=== PATIENT | female | born 1975 | race Caucasian/White ===

== ENCOUNTER 2023-02-17 08:30 | Outpatient (CLI) | payer OTHER, SELFPAY ==
[2023-02-17 09:24] LABS: Basophils Absolute Auto 0.1 K/mm3 (0.0-0.1); Basophils Percent Auto 1.2 % (0.2-1.2); Eosinophils Absolute Auto 0.4 K/mm3 (0-0.3); Eosinophils Percent Auto 3.9 % (0-4.4); Hematocrit 37.7 % (37.0-47.0); Hemoglobin 11.8 g/dL (12.0-15.0); Immature Granulocyte Absolute 0.04 K/mm3 (0.00-0.031); Immature Granulocyte Percent A 0.4 % (0-0.5); Lymphocytes Absolute Auto 1.82 K/mm3 (0.9-3.2); Lymphocytes Percent Auto 19.4 % (18.3-44.2); Mean Corpuscular HGB Conc 31.3 g/dl (32-36); Mean Corpuscular Hemoglobin 26.9 pg (26-34); Mean Corpuscular Volume 85.9 fl (80-100); Mean Platelet Volume 10.9 fl (7.4-10.4); Monocytes Absolute Auto 0.7 K/mm3 (0.1-0.6); Monocytes Percent Auto 7.6 % (2.6-8.5); Neutrophils Absolute Auto 6.3 K/mm3 (1.3-6.7); Neutrophils Percent Auto 67.5 % (45.5-73.1); Platelet Count Result 265 k/mm3 (150-375); Red Blood Count 4.39 M/mm3 (4.2-5.4); Red Cell Distribution Width 14.6 % (11.5-14.5); White Blood Count 9.4 K/mm3 (4.5-10.0)
[2023-02-17 09:32] LABS: Alanine Aminotransferase 31 U/L (6-35); Albumin Level 4.4 g/dL (3.5-5.1); Alkaline Phosphatase 67 U/L (38-126); Anion Gap 9 mmol/L (8-16); Aspartate Amino Transferase 32 U/L (14-36); Bilirubin,Total 0.5 mg/dL (0.2-1.3); Blood Urea Nitrogen 9 mg/dL (7-17); Calcium 8.7 mg/dL (8.4-10.2); Carbon Dioxide 27 mmol/L (22-30); Chloride 102 mmol/L (98-107); Cholesterol 160 mg/dL (0-200); Estimated Glomerular Filt Rate > 60; Glucose 102 mg/dL (65-110); HDL Direct 72 mg/dL; Potassium 3.5 mmol/L (3.4-5.0); Sodium 138 mmol/L (137-145); Triglycerides 104 mg/dL (<150)
[2023-02-17 09:43] LABS: LDL Cholesterol Direct 45 mg/dL
== END 2023-02-17 08:31 | disposition home or self-care (01) ==
PROVIDERS: PCP Family Medicine; Visit Provider Physician Assistant Medical
DX: I10 Essential (primary) hypertension (principal); Z00.00 Encounter for general adult medical examination without abnormal findings
CPT/HCPCS: 36415; 80053; 80061; 85025

== ENCOUNTER 2024-06-18 11:02 | Outpatient (CLI) | payer OTHER, SELFPAY ==
[2024-06-18 11:32] LABS: Basophils Absolute Auto 0.1 K/mm3 (0.0-0.1); Basophils Percent Auto 0.9 % (0.2-1.2); Eosinophils Absolute Auto 0.5 K/mm3 (0-0.3); Eosinophils Percent Auto 4.3 % (0-4.4); Hematocrit 34.6 % (37.0-47.0); Hemoglobin 10.5 g/dL (12.0-15.0); Immature Granulocyte Absolute 0.07 K/mm3 (0.00-0.031); Immature Granulocyte Percent A 0.7 % (0-0.5); Lymphocytes Absolute Auto 2.36 K/mm3 (0.9-3.2); Lymphocytes Percent Auto 22.3 % (18.3-44.2); Mean Corpuscular HGB Conc 30.3 g/dl (32-36); Mean Corpuscular Hemoglobin 23.9 pg (26-34); Mean Corpuscular Volume 78.8 fl (80-100); Mean Platelet Volume 10.5 fl (7.4-10.4); Monocytes Absolute Auto 0.6 K/mm3 (0.1-0.6); Monocytes Percent Auto 5.6 % (2.6-8.5); Neutrophils Percent Auto 66.2 % (45.5-73.1); Platelet Count Result 305 k/mm3 (150-375); Red Blood Count 4.39 M/mm3 (4.2-5.4); White Blood Count 10.6 K/mm3 (4.5-10.0)
[2024-06-18 11:43] LABS: Alanine Aminotransferase 33 U/L (6-35); Albumin Level 4.6 g/dL (3.5-5.1); Alkaline Phosphatase 70 U/L (38-126); Anion Gap 9 mmol/L (4-12); Aspartate Amino Transferase 26 U/L (14-36); Bilirubin,Total 0.3 mg/dL (0.2-1.3); Blood Urea Nitrogen 17 mg/dL (7-17); Calcium 8.8 mg/dL (8.4-10.2); Carbon Dioxide 27 mmol/L (22-30); Chloride 102 mmol/L (98-107); Cholesterol 196 mg/dL (0-200); Estimated Glomerular Filt Rate > 60; Glucose 107 mg/dL (65-110); HDL Direct 66 mg/dL; Potassium 3.9 mmol/L (3.4-5.0); Sodium 138 mmol/L (137-145); Triglycerides 128 mg/dL (<150)
[2024-06-18 11:54] LABS: LDL Cholesterol Direct 53 mg/dL
--- OUTSIDE RECORDS SUMMARY | 2024-06-18 12:22 | XMS_ITS | Clinical Summary ---
Author Organization [facility] [place] [address] [facility] Address [address] [place] [address] Care Team Providers Care Heater Engineer Helper Name Role Phone Hemal Morales Primary Care Provider [phone] Allergies No known active allergies Medications loratadine 10 mg capsule Take 10 mg by mouth daily Active rizatriptan SUPERINTENDENT HORTICULTURE (MAXALT-SUPERINTENDENT HORTICULTURE) 10 mg disintegrating tabletIndications :Migraine without aura and without status migrainosus, not intractable May repeat in 2 hours if unresolved. Do not exceed 30 mg in 24 hours. 10 tablet 3 022 Active fexofenadine (SUPRIYA) 180 mg tablet Take 1 tablet (180 mg total) by mouth daily Active albuterol HFA (PROVENTIL HFA,VENTOLIN HFA,PROAIR HFA) 90 mcg/actuation inhaler INHALE 2 PUFFS BY MOUTH EVERY 6 HOURS NEEDED FOR WHEEZING OR SHORTNESS OF BREATH 8.5 g 1 024 Active semaglutide (Wegovy) 0.25 mg/0.5 mL auto-injectorIndi cations:Class 1 obesity due to excess calories with serious comorbidity and body mass index (BMI) of 32.0 to 32.9 in adult Inject 0.5 mL (0.25 mg total) under the skin every 7 days 2 mL 024 Active Additional Information Patient not taking.Reported on 03/06/2024 tirzepatide, weight loss, (Zepbound) 2.5 mg/0.5 mL pen injectorIndicatio ns:Class 1 obesity due to excess calories with serious comorbidity and body mass index (BMI) of 32.0 to 32.9 in adult Inject 0.5 mL (2.5 mg total) under the skin every 7 days 2 mL Active Additional Information Patient not taking.Reported on 03/06/2024 ondansetron ODT (ZOFRAN-ODT) 4 mg disintegrating tabletIndications :Nausea and vomiting, unspecified vomiting type Take 1 tablet (4 mg total) by mouth every 6 (six) hours as needed for nausea or vomiting 30 tablet Active Additional Information Patient not taking.Reported on 03/06/2024 hyoscyamine (LEVSIN) 0.125 mg SL tabletIndications :Urinary Incontinence Take 1 tablet (0.125 mg total) by mouth every 6 (six) hours as needed for cramping for up to 7 days 28 tablet Active Additional Information Patient not taking.Reported on 03/06/2024 amLODIPine (NORVASC) 5 mg tabletIndications :Essential (primary) hypertension Take 1 tablet (5 mg total) by mouth daily 90 tablet Active sertraline (ZOLOFT) 50 mg tabletIndications :Moderate episode of recurrent major depressive disorder (HCC) TAKE 1 TABLET(50 MG) BY MOUTH DAILY 90 tablet Active ALPRAZolam (XANAX) 0.5 mg tabletIndications :JOSLYN (generalized anxiety disorder) TAKE 1 TABLET(0.5 MG) BY MOUTH THREE TIMES DAILY NEEDED FOR ANXIETY 60 tablet Active sertraline (ZOLOFT) 50 mg tabletIndications :Moderate episode of recurrent major depressive disorder (HCC) Take 1 tablet (50 mg total) by mouth daily 90 tablet 2024 Discontinued ALPRAZolam (XANAX) 0.5 mg tabletIndications :JOSLYN (generalized anxiety disorder) TAKE 1 TABLET(0.5 MG) BY MOUTH THREE TIMES DAILY NEEDED FOR ANXIETY 60 tablet 2024 Discontinued ALPRAZolam (XANAX) 0.5 mg tabletIndications :JOSLYN (generalized anxiety disorder) TAKE 1 TABLET(0.5 MG) BY MOUTH THREE TIMES DAILY NEEDED FOR ANXIETY 60 tablet /25/ 2025 Discontinued Active Problems Problem Noted Date Diagnosed Date Annual physical exam 03/06/2024 Class 1 obesity due to exces s calories with serious comorbidity and body mass index (BMI) of 32.0 to 32.9 in adult 05/17/2023 Assessment & Plan (12/11/2023 10:44 PM CDT): D/c wegovy with likely side effects of glp Assessment & Plan (11/29/2023 10:07 AM CDT): Chronic uncontrolled D/c tompiramate D/c adipex Start wegovy sample Send zepbound in for possible coverage Assessment & Plan (08/23/2023 9:28 AM CDT): Chronic uncontrolled Restart adipex and topirimate Assessment & Plan (05/17/2023 11:08 AM WOOD SETTER): Chronic not at goal Start contrave Moderate episode of recurrent major depressive d isorder 05/15/2018 Assessment & Plan (03/06/2024 3:18 PM WOOD SETTER): Chronic not well controlled Increase zoloft 50mg Assessment & Plan (08/23/2023 9:27 AM CDT): Chronic stable and improved Continue zoloft Assessment & Plan (05/17/2023 11:13 AM WOOD SETTER): Chronic conditions stable Continue sertraline. Assessment & Plan (02/15/2023 10:39 AM WOOD SETTER): Chronic and not well controlled Start trintellix D/c zoloft Assessment & Plan (09/01/2021 4:09 PM CDT): Chronic condition stable well controlled continue Wellbutrin Assessment & Plan (10/29/2018 2:06 PM CDT): Patient failed Prozac due to side effects. We will start trentellix 10 mg 1 tab p.o. Q.d. Mild intermittent asthma without complication Assessment & Plan (02/18/2019 11:38 AM WOOD SETTER): symbicort 160/4.5 Essential (primary) hypertension 08/04/2017 Assessment & Plan (11/29/2023 10:41 AM CDT): Chronic stable and well controlled Continue amlodipine Assessment & Plan (08/23/2023 9:26 AM CDT): Chronic stable and well controlled Continue amlodipine Assessment & Plan (05/17/2023 11:13 AM WOOD SETTER): Chronic stable and well controlled Continue amlodipine Assessment & Plan (02/15/2023 10:30 AM WOOD SETTER): Chronic stable and well controlled Continue amlodipine Assessment & Plan (11/09/2022 10:32 AM CDT): Chronic stable and well controlled Continue amlodipine Assessment & Plan (05/12/2022 12:59 PM WOOD SETTER): Chronic stable and at goal\ contiue amlodipine. Assessment & Plan (09/01/2021 4:09 PM CDT): Chronic condition stable well controlled Continue amlodipine Assessment & Plan (07/12/2021 2:01 PM CDT): Chronic condition Well controlled at goal Assessment & Plan (06/02/2021 2:34 PM CDT): Chronic condition Continue amlodipine. At goal Assessment & Plan (03/31/2021 3:08 PM WOOD SETTER): Chronic condition well-controlled at goal continue with amlodipine Assessment & Plan (10/19/2020 10:09 AM CDT): Chronic condition Assessment & Plan (07/22/2020 11:34 AM CDT): Chronic condition Stable and at goal Assessment & Plan (06/10/2020 11:12 AM CDT): Chronic condition currently well controlled continue amlodipine Assessment & Plan (03/25/2020 12:04 PM WOOD SETTER): Well controlled on current regimen, no rx changes needed. Continue lifestyle modifications Assessment & Plan (12/25/2019 10:17 AM CDT): Well controlled on current regimen, no rx changes needed. Continue lifestyle modifications Assessment & Plan (11/18/2019 10:32 AM CDT): Well controlled on current regimen, no rx changes needed. Continue lifestyle modifications Assessment & Plan (09/17/2019 10:52 AM CDT): Well controlled on current regimen, no rx changes needed. Continue lifestyle modifications Assessment & Plan (08/15/2019 2:09 PM CDT): Well controlled on current regimen, no rx changes needed. Continue lifestyle modifications Assessment & Plan (10/29/2018 2:04 PM CDT): Well controlled on current regimen, no rx changes needed. Continue lifestyle modifications Assessment & Plan (06/18/2018 11:45 AM CDT): Under good control on amlodipine 5 mg Migraine without aura and wi thout status migrainosus, not intractable 05/16/2017 Assessment & Plan (05/12/2022 12:58 PM WOOD SETTER): Chronic and not well cotrolled Start nurtec every other day #16 copay card Assessment & Plan (01/12/2022 11:24 AM CDT): Chronic and stable Continue with maxalt Feels reduction in headache with nurtec. Assessment & Plan (11/17/2021 1:21 PM CDT): Chronic and uncontrolled 25-30 headache days a month Start nurtec 75 mg odt every other day Assessment & Plan (10/19/2020 10:10 AM CDT): Chronic condition Stable and well controlled Continue emgality. Assessment & Plan (07/22/2020 11:34 AM CDT): Chronic condition improved with emgality Continue current dose. Assessment & Plan (03/25/2020 12:04 PM WOOD SETTER): Refill emgality and restart Give toradol 60mg im Current migraine red today. Assessment & Plan (10/16/2019 10:54 AM CDT): Start emgality Assessment & Plan (02/18/2019 11:37 AM WOOD SETTER): Start topamax taper Assessment & Plan (10/29/2018 2:05 PM CDT): Patient experiences 15+ migraines a month she has failed Topamax and propranolol and ajovy. She has also made dietary changes and restrictions as well. She is considering Botox if fails 2nd injectable Maxalt does give her a little bit of relief of her pain at this point Assessment & Plan (06/18/2018 11:23 AM CDT): toradol 60 mg im today Soma 350mg bid for 4 days JOSLYN (generalized anxiety disorder) 05/16/2017 Assessment & Plan (02/15/2023 10:37 AM WOOD SETTER): Chronic stable and well controlled Continue xanax \ D/c zoloft due to sexual dysfunction Start trintellix Assessment & Plan (11/09/2022 10:32 AM CDT): Chronic stable and well controlled Continue xanax Start zoloft 25mg \ Likely secondary to beginning perimenopausal symptoms Assessment & Plan (05/12/2022 1:00 PM WOOD SETTER): Chronic stable and well controlled Continue xanax Assessment & Plan (01/12/2022 11:23 AM CDT): Chronic and well controlled Continue with xanax prn Refill today Assessment & Plan (07/12/2021 2:00 PM CDT): Chronic conditoin Uncontrolled Increase wellbutrin xl 300mg Assessment & Plan (06/02/2021 2:34 PM CDT): Chronic condition persistent but well controlled with Xanax Continue current regimen Assessment & Plan (03/31/2021 3:08 PM WOOD SETTER): Chronic condition stable with intermittent use of alprazolam Refill alprazolam Assessment & Plan (10/19/2020 10:09 AM CDT): Chronic condition Stable and well controlled Refill xanax Assessment & Plan (06/10/2020 11:13 AM CDT): Chronic condition that is currently under good control with Xanax taking 1 to 3 times a day. Assessment & Plan (03/25/2020 12:05 PM WOOD SETTER): Well controlled on current regimen, no rx changes needed. Continue lifestyle modifications Refill xanax Assessment & Plan (08/15/2019 2:09 PM CDT): Well controlled on current regimen, no rx changes needed. Continue lifestyle modifications Assessment & Plan (02/18/2019 11:37 AM WOOD SETTER): Refill xanax Assessment & Plan (10/29/2018 2:06 PM CDT): Refill Xanax Assessment & Plan (06/18/2018 11:24 AM CDT): Increase prozac to 40mg Hepatic lesion 11/10/2016 Resolved Problems Problem Noted Date Diagnosed Date Resolved Date Mid back pain 10/03/2022 08/23/2023 Assessment & Plan (10/03/2022 3:05 PM CDT): VSS, no systemic toxicity, mild distress due to pain, emotional due to pain, difficult to sit in one position due to pain Dipstick UA in office negative LE, negative nitrites, negative blood or protein Hx of recurrent kidney stones , lithotripsy and patient endorses similar pain Apart from pain, patient asymptomatic Possibly due to renal stone vs MSK vs other IM toradol 30 mg one time today in the office Unable to order CT a/p or US renal bladder or labs from site. Sending patient to the ER for further workup Situational anxiety 01/12/2022 08/23/19 24 Weight gain 02/18/2019 08/23/2023 Overview (10/19/2020): Goal wt 150lb Assessment & Plan (11/09/2022 10:29 AM CDT): Chronic and not at goal Start zoloft 25mg Assessment & Plan (08/08/2022 12:00 PM CDT): Chronic and not at goal start wegovy yamile Assessment & Plan (05/12/2022 12:59 PM WOOD SETTER): Chronic and not at goal; Start adipex Start wegovy Assessment & Plan (01/12/2022 11:31 AM CDT): Chronic condition not at goal Refill phentermine. Assessment & Plan (09/01/2021 4:04 PM CDT): chornic uncontrolled with not at goal Refill adipex Continue topamax Assessment & Plan (07/12/2021 2:04 PM CDT): Chronic not at goal Refill adipex conhtinue topirimate. Assessment & Plan (06/02/2021 2:33 PM CDT): Chronic condition not at goal Refill phentermine refill topiramate Assessment & Plan (03/31/2021 3:04 PM WOOD SETTER): Chronic condition Uncontrolled 16lb weight gain Start adipex Start topamax. Assessment & Plan (10/19/2020 10:13 AM CDT): Chronic condition Not at goal Start adipex Assessment & Plan (07/22/2020 11:35 AM CDT): Chronic condition not at goal Refill adipex, and topamax. Assessment & Plan (12/25/2019 10:16 AM CDT): Refill phenteramine Continue topamax. Assessment & Plan (09/17/2019 10:40 AM CDT): Script topamax 50mg bid Refill adipex Assessment & Plan (08/15/2019 2:09 PM CDT): Restart adipex and topamax Assessment & Plan (02/18/2019 11:37 AM WOOD SETTER): Start phenteramine Start topamax taper dose Immunizations Immunization Administration Dates Next Due Influenza, Trivalent, Preser vative Free, Intramuscular 01/04/2024 Influenza, Unspecified 02/03/2023,2022(Deferred: Patient decision),01/14/2020 Pfizer SARS-CoV-2 Monovalent Vaccination (12+ Yrs) PURPLE 03/27/2020,03/06/2020 Surgical History Surgery Date Site/Laterality Comments TUBAL LIGATION SECTION KIDNEY STONE SURGERY Medical History Medical History Date Comments Calculus of kidney Hepatic lesion Menorrhagia Anxiety Hypertension Asthma Depression Migraine without aura Family History Medical History Relation Name Comments Hypertension Father Moses vigna Prostate cancer Father Moses vigna Cancer Maternal Grandmother Kristan Asthma Mother Deb COPD Mother Deb Cancer Paternal Grandfather Moses christensena Relation Name Status Comments Brother Alive Daughter Alive Father Moses vigna Alive Maternal Grandfather Maternal Grandmother Kristan Mother Deb Alive Paternal Grandfather Moses vigna Paternal Grandmother Alive Son Alive Social History Tobacco Use Types Packs/Day Years Used Date Smoking Tobacco: Former Cigarettes 0.5 20 0 10/29/1996 - 10/29/2016 Smokeless Tobacco: Never Tobacco Cessation:Counseling Given: Not Answered Alcohol Use Standard Drinks/Week Comments Not Currently 0 (1 standard drink = 0.6 oz pur e alcohol) AUDIT-C Answer Date Recorded Q1: How often do you have a drink containing alcohol? Never 03/06/2024 Q2: How many drinks containi ng alcohol do you have on a typical day when you are drinking? Patient does not drink Q3: How often do you have si x or more drinks on one occasion? Never 03/06/2024 PHQ-2 Answer Date Recorded PHQ-2 Total Score (If total score is 3 or more points, staff should administer the PHQ-9) 0 03/06/2024 Personal Safety Answer Date Recorded Have you ever been in or are you currently in a harmful physical or emotional relationship or is someone making you feel afraid or unsafe? Denies 10/03/2022 Comments No Sex and Gender Information Value Date Recorded Sex Assigned at Not on file Legal Sex Female 7:06 PM WOOD SETTER Gender Identity Female 03/18/2020 9:26 AM WOOD SETTER Sexual Orientation Straight 03/18/2020 9: 26 AM WOOD SETTER Obstetrics History Para Term AB IAB SAB Ectopic Multiple Livin g Live Births 2 Date Outcome GA Total Labor Labor/2nd/3rd Weight Sex Type Anes PTL Mayra A1 A5 Name Clin Last Filed Vital Signs Vital Sign Reading Time Taken Comments Blood Pressure 120/78 03/06/2024 2:04 PM WOOD SETTER Pulse 95 03/06/2024 2:04 PM WOOD SETTER Temperature 36.8 C (98.2 F) 03/06/2024 2:04 PM WOOD SETTER Respiratory Rate 16 12/11/2023 1:44 PM CDT Oxygen Saturation 99% 03/06/2024 2:04 PM WOOD SETTER Inhaled Oxygen Concentration - - Weight 90.5 kg (199 lb 8 oz) 03/06/2024 2:04 PM WOOD SETTER Height 165.1 cm (5' 5 ) 03/06/2024 2:04 PM WOOD SETTER Body Mass Index 33.2 03/06/2024 2:04 PM WOOD SETTER Plan of Treatment Health Maintenance Due Date Last Done Comments Cervical Cancer Screening 1977 Hepatitis C Screening 1975 DTaP/Tdap/Td Vaccine (1 - Tdap) 1988 Hepatitis B Screening 08/11/1995 Pneumococcal vaccine <65 (1 of 2 - PCV) 1996 Breast Cancer Screening-Mammogram 10/20/2023 10/19/2022 Covid-19 Vaccine ( season) 2023 01/01/2021, 03/27/2020, 03/06/2020 Depression Screening 03/06/2025 03/06/2024, 02/15/2023, 11/17/2021, Additional history exists Regular Well Visit/Exam 18-64 03/06/2025 03/06/2024, 02/15/2023, 11/18/2020 Colon Cancer Screening-DNA Stool 12/12/2025 12/12/2022 Influenza Vaccine Completed 01/04/2024, , 01/14/2020 HPV Vaccines Aged Out No longer eligi ble based on patient's age to complete this topic Procedures Procedure Name Priority Date/Time Associated Diagnosis Comments STOOL DNA COLOGUARD Routine 12/12/2022 8:30 AM CDT Screening for colon cancer SCREENING MAMMOGRAM BILATERAL W MAGEN Schedule Routine, Read Routine (OP Routine) 10/19/2022 4:00 PM CDT Screening mammogram, encounter for from Last 3 Months or Most Recently Relevant to Health Maintenance Results * Stool DNA - Cologuard (12/12/2022 8:30 AM CDT) Stool DNA - Cologuard Negative Negative [employer] (CLIA #:[id number]) Comment: NEGATIVE TEST RESULT. A negative Cologuard result indicates a low likelihood that a colorectal cancer (CRC) or advanced adenoma (adenomatous polyps with more advanced pre-malignant features) is present. The chance that a person with a negative Cologuard test has a colorectal cancer is less than 1 in 1500 (negative predictive value >99.9%) or has an advanced adenoma is less than 5.3% (negative predictive value 94.7%). These data are based on a prospective cross-sectional study of 10,000 individuals at average risk for colorectal cancer who were screened with both Cologuard and colonoscopy. (Jose Alberto Garcia, N Engl J Med 2014;370(14):8253-9088) The normal value (reference range) for this assay is negative. COLOGUARD RE-SCREENING RECOMMENDATION: Periodic colorectal cancer screening is an important part of preventive healthcare for asymptomatic individuals at average risk for colorectal cancer. Following a negative Cologuard result, the [place] [employer] and U.S. Multi-Society Task Force screening guidelines recommend a Cologuard re-screening interval of 3 years. References: [place] [employer] Guideline for Colorectal Cancer Screening: https://www.cancer.org/cancer/cetzh-ihvutt-tnmjai/mmsqykvnq-dezrxkvwd-modhvav/ac s-rec ommendations.html.; Giorgio DK, [place] CR, Kirk JohnK, Colorectal Cancer Screening: Recommendations for Physicians and Patients from the U.S. Multi-Society Task Force on Colorectal Cancer Screening , Am J Gastroenterology 2017; 112:0053-0517. TEST DESCRIPTION: Composite algorithmic analysis of stool DNA-biomarkers with hemoglobin immunoassay. Quantitative values of individual biomarkers are not reportable and are not associated with individual biomarker result reference ranges. Cologuard is intended for colorectal cancer screening of adults of either sex, 45 years or older, who are at average-risk for colorectal cancer (CRC). Cologuard has been approved for use by the U.S. FDA. The performance of Cologuard was established in a cross sectional study of average-risk adults aged 50-84. Cologuard performance in patients ages 45 to 49 years was estimated by sub-group analysis of near-age groups. Colonoscopies performed for a positive result may find as the most clinically significant lesion: colorectal cancer [4.0%], advanced adenoma (including sessile serrated polyps greater than or equal to 1cm diameter) [20%] or non- advanced adenoma [31%]; or no colorectal neoplasia [45%]. These estimates are derived from a prospective cross-sectional screening study of 10,000 individuals at average risk for colorectal cancer who were screened with both Cologuard and colonoscopy. (Jose Alberto Garcia, N Engl J Med 2014;370(14):2475-0474.) Cologuard may produce a false negative or false positive result (no colorectal cancer or precancerous polyp present at colonoscopy follow up). A negative Cologuard test result does not guarantee the absence of CRC or advanced adenoma (pre-cancer). The current Cologuard screening interval is every 3 years. ([place] [employer] and U.S. Multi-Society Task Force). Cologuard performance data in a 10,000 patient pivotal study using colonoscopy as the reference method can be accessed at the following location: [email or web address]/results. Additional description of the Cologuard test process, warnings and precautions can be found at www.[employer].com. Stool 12/12/2022 8:30 AM CDT 12/13/2022 4:19 PM CDT us [facility] BODY FLUIDS AND STOOLS SEDRICK MILAN Final Result Consult [employer] (CLIA #:[id number]) [address] [place] [address] * Screening Mammogram Bilateral W Magen (10/19/2022 4:00 PM CDT) Anatomical Region Laterality Modality Breast Bilateral Mammography Impressions 10/19/2022 4:07 PM CDT BI-RADS ATLAS category (overall): 1 - Negative There is no mammographic evidence of malignancy. A 1 year screening mammogram is recommended. The patient has been or will be contacted. We recommend annual screening mammography for women at average risk of breast cancer beginning at age 40, based on guidelines of the [place] [employer] (ACR Practice Parameter for the Performance of Screening and Diagnostic Mammography) and [place] [employer]. For women with and elevated risk of breast cancer, please refer to the ACR Practice Parameter for specific screening recommendations. The patient will be entered into a reminder system with a target due date of 1 year for her next screening exam. Narrative 10/19/2022 4:07 PM CDT Screening Mammogram Bilateral W Magen: 10/19/22 The study was acquired using full field digital technology and interpreted from soft copy. 2D digital mammographic views, as well as 3D digital tomosynthesis were performed in the CC and MLO projections. CLINICAL: Screening mammogram, encounter for. No relevant medical history has been documented for this patient. No known family history of breast cancer. COMPARISON: Baseline Screening Mammography. No prior mammography is available for comparison. BREAST TISSUE: The breasts are heterogeneously dense, which may obscure small masses. FINDINGS: No suspicious masses, suspicious calcifications, or other suspicious findings are seen within either breast. us Self Screening Mammogram IMG MAMMO PROCEDURES Fi nal Result from Last 3 Months or Most Recently Relevant to Health Maintenance [place] [address] [address] [place] [address] [employer] Member Subscriber Plan / Payer (Ef fective 2018-Present) Name:Blanca Vinson Relation to Subscriber:Self Name:Blanca Vinson Payer ID:[id number] (NAIC) Type:MANAGED CARE OTHER Address: [place] [phone] Member Subscriber Plan / Payer (Ef fective 2018-Present) Name:Blanca Vinson Relation to Subscriber:Self Name:Blanca Vinson Payer ID:[id number] (NAIC) Type:[facility] H[facility]/PPO Address: [place] [phone] [facility] Care Teams Heater Engineer Helper Relationship Specialty Start Date End Date Hemal Morales PA PCP - General Family Medicine 12/15/21
--- OUTSIDE RECORDS SUMMARY | 2024-06-18 12:22 | XMS_ITS | Referral Summary ---
Author Organization [facility] – [place] [address] [facility] Address [address] [place] [address] Care Team Providers Care Operating Room Surgical Technologist Name Role Phone Hemal Morales Primary Care Provider [phone] Allergies No known active allergies Medications loratadine 10 mg capsule Take 10 mg by mouth daily Active rizatriptan SPORTS ANNOUNCER (MAXALT-SPORTS ANNOUNCER) 10 mg disintegrating tabletIndications :Migraine without aura [...] topirimate Assessment & Plan (05/17/2023 11:08 AM UTILITY SYSTEMS REPAIRER OPERATOR): Chronic not at goal Start contrave Moderate episode of recurrent major depressive d isorder 05/15/2018 Assessment & Plan (03/06/2024 3:18 PM UTILITY SYSTEMS REPAIRER OPERATOR): Chronic not well controlled Increase zoloft 50mg Assessment & Plan (08/23/2023 9:27 AM CDT): Chronic stable and improved Continue zoloft Assessment & Plan (05/17/2023 11:13 AM UTILITY SYSTEMS REPAIRER OPERATOR): Chronic conditions stable Continue sertraline. Assessment & Plan (02/15/2023 10:39 AM UTILITY SYSTEMS REPAIRER OPERATOR): Chronic and not well controlled Start trintellix D/c zoloft Assessment & Plan (09/01/2021 4:09 PM CDT): Chronic condition stable well controlled continue Wellbutrin Assessment & Plan (10/29/2018 2:06 PM CDT): Patient failed Prozac due to side effects. We will start trentellix 10 mg 1 tab p.o. Q.d. Mild intermittent asthma without complication Assessment & Plan (02/18/2019 11:38 AM UTILITY SYSTEMS REPAIRER OPERATOR): symbicort 160/4.5 Essential (primary) hypertension 08/04/2017 Assessment & Plan (11/29/2023 10:41 AM CDT): Chronic stable and well controlled Continue amlodipine Assessment & Plan (08/23/2023 9:26 AM CDT): Chronic stable and well controlled Continue amlodipine Assessment & Plan (05/17/2023 11:13 AM UTILITY SYSTEMS REPAIRER OPERATOR): Chronic stable and well controlled Continue amlodipine Assessment & Plan (02/15/2023 10:30 AM UTILITY SYSTEMS REPAIRER OPERATOR): Chronic stable and well controlled Continue amlodipine Assessment & Plan (11/09/2022 10:32 AM CDT): Chronic stable and well controlled Continue amlodipine Assessment & Plan (05/12/2022 12:59 PM UTILITY SYSTEMS REPAIRER OPERATOR): Chronic stable and at goal\ contiue amlodipine. Assessment & Plan (09/01/2021 4:09 PM CDT): Chronic condition stable well controlled Continue amlodipine Assessment & Plan (07/12/2021 2:01 PM CDT): Chronic condition Well controlled at goal Assessment & Plan (06/02/2021 2:34 PM CDT): Chronic condition Continue amlodipine. At goal Assessment & Plan (03/31/2021 3:08 PM UTILITY SYSTEMS REPAIRER OPERATOR): Chronic condition well-controlled at goal continue with amlodipine Assessment & Plan (10/19/2020 10:09 AM CDT): Chronic condition Assessment & Plan (07/22/2020 11:34 AM CDT): Chronic condition Stable and at goal Assessment & Plan (06/10/2020 11:12 AM CDT): Chronic condition currently well controlled continue amlodipine Assessment & Plan (03/25/2020 12:04 PM UTILITY SYSTEMS REPAIRER OPERATOR): Well controlled on current regimen, no rx [...] 05/16/2017 Assessment & Plan (05/12/2022 12:58 PM UTILITY SYSTEMS REPAIRER OPERATOR): Chronic and not well cotrolled Start nurtec [...] dose. Assessment & Plan (03/25/2020 12:04 PM UTILITY SYSTEMS REPAIRER OPERATOR): Refill emgality and restart Give toradol 60mg im Current migraine red today. Assessment & Plan (10/16/2019 10:54 AM CDT): Start emgality Assessment & Plan (02/18/2019 11:37 AM UTILITY SYSTEMS REPAIRER OPERATOR): Start topamax taper Assessment & Plan (10/29/2018 [...] 05/16/2017 Assessment & Plan (02/15/2023 10:37 AM UTILITY SYSTEMS REPAIRER OPERATOR): Chronic stable and well controlled Continue xanax \ D/c zoloft due to sexual dysfunction Start trintellix Assessment & Plan (11/09/2022 10:32 AM CDT): Chronic stable and well controlled Continue xanax Start zoloft 25mg \ Likely secondary to beginning perimenopausal symptoms Assessment & Plan (05/12/2022 1:00 PM UTILITY SYSTEMS REPAIRER OPERATOR): Chronic stable and well controlled Continue xanax Assessment & Plan (01/12/2022 11:23 AM CDT): Chronic and well controlled Continue with xanax prn Refill today Assessment & Plan (07/12/2021 2:00 PM CDT): Chronic conditoin Uncontrolled Increase wellbutrin xl 300mg Assessment & Plan (06/02/2021 2:34 PM CDT): Chronic condition persistent but well controlled with Xanax Continue current regimen Assessment & Plan (03/31/2021 3:08 PM UTILITY SYSTEMS REPAIRER OPERATOR): Chronic condition stable with intermittent use of alprazolam Refill alprazolam Assessment & Plan (10/19/2020 10:09 AM CDT): Chronic condition Stable and well controlled Refill xanax Assessment & Plan (06/10/2020 11:13 AM CDT): Chronic condition that is currently under good control with Xanax taking 1 to 3 times a day. Assessment & Plan (03/25/2020 12:05 PM UTILITY SYSTEMS REPAIRER OPERATOR): Well controlled on current regimen, no rx changes needed. Continue lifestyle modifications Refill xanax Assessment & Plan (08/15/2019 2:09 PM CDT): Well controlled on current regimen, no rx changes needed. Continue lifestyle modifications Assessment & Plan (02/18/2019 11:37 AM UTILITY SYSTEMS REPAIRER OPERATOR): Refill xanax Assessment & Plan (10/29/2018 2:06 [...] yamile Assessment & Plan (05/12/2022 12:59 PM UTILITY SYSTEMS REPAIRER OPERATOR): Chronic and not at goal; Start adipex [...] topiramate Assessment & Plan (03/31/2021 3:04 PM UTILITY SYSTEMS REPAIRER OPERATOR): Chronic condition Uncontrolled 16lb weight gain Start [...] topamax Assessment & Plan (02/18/2019 11:37 AM UTILITY SYSTEMS REPAIRER OPERATOR): Start phenteramine Start topamax taper dose Immunizations Immunization Administration Dates Next Due Influenza, Trivalent, Preser vative Free, Intramuscular 01/04/2024 Influenza, Unspecified 02/03/2023,2022(Deferred: Patient decision),01/14/2020 Pfizer SARS-CoV-2 Monovalent Vaccination (12+ Yrs) PURPLE 03/27/2020,03/06/2020 Social History Tobacco Use Types Packs/Day Years [...] on file Legal Sex Female 7:06 PM UTILITY SYSTEMS REPAIRER OPERATOR Gender Identity Female 03/18/2020 9:26 AM UTILITY SYSTEMS REPAIRER OPERATOR Sexual Orientation Straight 03/18/2020 9: 26 AM UTILITY SYSTEMS REPAIRER OPERATOR Last Filed Vital Signs Vital Sign Reading Time Taken Comments Blood Pressure 120/78 03/06/2024 2:04 PM UTILITY SYSTEMS REPAIRER OPERATOR Pulse 95 03/06/2024 2:04 PM UTILITY SYSTEMS REPAIRER OPERATOR Temperature 36.8 C (98.2 F) 03/06/2024 2:04 PM UTILITY SYSTEMS REPAIRER OPERATOR Respiratory Rate 16 12/11/2023 1:44 PM CDT Oxygen Saturation 99% 03/06/2024 2:04 PM UTILITY SYSTEMS REPAIRER OPERATOR Inhaled Oxygen Concentration - - Weight 90.5 kg (199 lb 8 oz) 03/06/2024 2:04 PM UTILITY SYSTEMS REPAIRER OPERATOR Height 165.1 cm (5' 5 ) 03/06/2024 2:04 PM UTILITY SYSTEMS REPAIRER OPERATOR Body Mass Index 33.2 03/06/2024 2:04 PM UTILITY SYSTEMS REPAIRER OPERATOR Plan of Treatment Not on file Procedures Procedure Name Priority Date/Time Associated Diagnosis [...] CDT) Stool DNA - Cologuard Negative Negative [facility] (CLIA #:[id number]) Comment: NEGATIVE TEST RESULT. A negative Cologuard [...] screened with both Cologuard and colonoscopy. (Jose Alberot Sharif et al, N Engl J Med 2014;370(14):8503-2213) The normal value (reference range) for this assay is negative. COLOGUARD RE-SCREENING RECOMMENDATION: Periodic colorectal cancer screening is an important part of preventive healthcare for asymptomatic individuals at average risk for colorectal cancer. Following a negative Cologuard result, the [place] Cancer Society and U.S. Multi-Society Task Force screening guidelines recommend a Cologuard re-screening interval of 3 years. References: [place] [employer] Guideline for Colorectal Cancer Screening: https://www.cancer.org/cancer/rdbyp-pnuyeg-knjjon/axewewsnt-otazjzrnt-lmgwtcr/ac s-rec ommendations.html.; Giorgio DK, [place] MARTINEZ, Kirk JohnK, Colorectal Cancer Screening: Recommendations for Physicians and Patients from the U.S. Multi-Society Task Force on Colorectal Cancer Screening , Am J Gastroenterology 2017; 112:1563-8758. TEST DESCRIPTION: Composite algorithmic analysis of stool [...] with both Cologuard and colonoscopy. (Jose Alberto Fernandez al, N Engl J Med 2014;370(14):2956-9735.) Cologuard may produce a false negative or false positive result (no colorectal cancer or precancerous polyp present at colonoscopy follow up). A negative Cologuard test result does not guarantee the absence of CRC or advanced adenoma (pre-cancer). The current Cologuard screening interval is every 3 years. ([place] [employer] Society and U.S. Multi-Society Task Force). Cologuard performance data in a 10,000 patient pivotal study using colonoscopy as the reference method can be accessed at the following location: www.[employer]/results. Additional description of the Cologuard test process, warnings and precautions can be found at www.[employer].Nveloped. Stool 12/12/2022 8:30 AM CDT 12/13/2022 4:19 PM CDT us Hemal [facility] BODY FLUIDS AND STOOLS SEDRICK MILAN Final Result [facility] (CLIA #:[id number]) [address] [place] [address] * Screening Mammogram Bilateral W Magen (10/19/2022 [...] age 40, based on guidelines of the [place] [employer] (ACR Practice Parameter for the Performance of Screening and Diagnostic Mammography) and [place] [employer] Obstetricians and Gynecologists. For women [...] Most Recently Relevant to Health Maintenance Insurance [facility] H[facility]/PPO Address: [facility] [address] [place] [address] [facility]/PPO Address: [address] [address] [facility] H[facility]/PPO Address: [address] [place] [id number] Care Teams Operating Room Surgical Technologist Relationship Specialty Start Date End Date Hemal Morales PA PCP - General Family Medicine 12/15/21
--- OUTSIDE RECORDS SUMMARY | 2024-06-18 12:22 | XMS_ITS ---
Author Organization [facility] Address [address] [place] [address] Care Team Providers Care Meat Loiner Name Role Phone Hemal Morales Primary Care Provider Kylah Chadwick [phone] REASON FOR VISIT Hives follow-up Encounters Encounter Location Date Provider Diagnosis [facility] [address] [place] [address] 05/10/2023 Kylah Coelho Plan Of Treatment No Information Progress Notes * Angel VINSONOB: [birth year] (48 yo F)Acc No.[id number]:05/10/2023 Progress Notes Patient: Blanca HERBERT Provider: Humera Coelho PA-C :1975 A ge:47 Y S ex:Female Date:05/10/2023 [id number] Pcp:Hemal Morales Subjective: * Chief Complaints: * 1 . Hives follow-up. * Medical History: Objective: * Vitals: Assessment: Plan: * Treatment: * Billing Information: * Visit Code: * Procedure Codes: * Electronic signature of Christopher Coelho PA-C [facility] FACILITY[facility] on 06/18/2024 at 12:22 PM CDT Sign off status: Pending * Provider: Humera Coelho PA-C Date: 0 05/10/2023 Generated for Printi ng/Faleathag/eTransmitting on: 0 06/18/2024 12:22 PM CDT
--- OUTSIDE RECORDS SUMMARY | 2024-06-18 12:23 | XMS_ITS | Encounter Summary ---
Author Organization [facility] Care Team Providers Care Flour Worker Name Role Phone Danilo Land MD Primary Care Provider [phone] Hemal Morales Primary Care Provider [phone] Encounter Details Date Type Department Care Team (Latest Contact Info) Description 12/02/2015 Orders Only [facility] CLINCONV ProviderTunde MD [address] [place], [place] [id number] Social History Tobacco Use Types Packs/Day Years Used Date Smoking Tobacco: Never Assessed Comments Unknown Sex and Gender Information Value Date Recorded Sex Assigned at Not on file Legal Sex Female 7:06 PM PRESCHOOL ASSISTANT TEACHER Gender Identity Female 03/18/2020 9:26 AM PRESCHOOL ASSISTANT TEACHER Sexual Orientation Straight 03/18/2020 9: 26 AM PRESCHOOL ASSISTANT TEACHER documented as of this encounter Plan of Treatment Not on file documented as of this encounter Procedures Procedure Name Priority Date/Time Associated Diagnosis Comments SCAN - LABS 12/02/2015 12:00 AM CDT SCAN - LABS 12/02/2015 12:00 AM CDT SCAN - LABS 12/02/2015 12:00 AM CDT SCAN - LABS 12/02/2015 12:00 AM CDT SCAN - LABS 12/02/2015 12:00 AM CDT documented in this encounter Results * SCAN - LABS (12/02/2015 12:00 AM CDT) Narrative 12/02/2015 12:00 AM CDT Ordered by an unspecified provider. Historical Provider Final Res ult * SCAN - LABS (12/02/2015 12:00 AM CDT) Narrative 12/02/2015 12:00 AM CDT Ordered by an unspecified provider. Historical Provider Final Res ult * SCAN - LABS (12/02/2015 12:00 AM CDT) Narrative 12/02/2015 12:00 AM CDT Ordered by an unspecified provider. Historical Provider Final Res ult * SCAN - LABS (12/02/2015 12:00 AM CDT) Narrative 12/02/2015 12:00 AM CDT Ordered by an unspecified provider. [facility] Provider Final Res ult * SCAN - LABS (12/02/2015 12:00 AM CDT) Narrative 12/02/2015 12:00 AM CDT Ordered by an unspecified provider. [facility] Provider Final Res ult documented in this encounter Visit Diagnoses Not on filedocumented in this encounter Care Teams Flour Worker Relationship Specialty Start Date End Date Danilo Land MD PCP - General Family Medicine 06/08/18 12/14/21 Hemal Morales PA PCP - General Family Medicine 12/15/21 documented as of this encounter
--- OUTSIDE RECORDS SUMMARY | 2024-06-18 12:23 | XMS_ITS ---
Author Organization [facility] Address [address] [place] [address] Care Team Providers Care Senior Enterprise Architect Name Role Phone Hemal Morales Primary Care Provider UnavailKylah Hodge Unavailable [phone] [facility], Provider Unavailable Unavailab le Allergies Allergen (clinical drug ingredient) Drug/Non Drug Allergy documented on EMR Reaction Allergy Type Onset Date Status NKA (uncoded) Unknown Allergy Active REASON FOR VISIT [facility] Conversion Encounter Medications Medication SIG (Take, Route, Frequency, Duration) Notes Start Date End Date Status ALPRAZolam 0.5 MG 1 tab(s) orally 3 times a day prn Active amLODIPine Besylate 5 MG 1 tab(s) orally once a day for 30 day(s) Active Rizatriptan Benzoate 10 MG 1 tab(s) orally once a day prn migraines Active Pepcid 20 MG 1 tab(s) orally 2 times a day for 30 days Active Cetirizine HCl 10 MG 1 tab(s) orally BID for 30 days 03/22/2023 Active ALBUTEROL (EQV-PROAIR HFA) 90 MCG/INH 2 PUFF(S) INHALED EVERY 6 HOURS prn *Please review for potential replacement for e-prescription and drug interaction check* Active Trintellix 10 MG 1 tab(s) orally once a day Active Fluticasone Propionate 50 MCG/ACT 2 spray(s) in each nostril BID for 30 day(s) Active Claritin 10 MG 2 tab(s) orally once a day Active Montelukast Sodium 10 MG 1 tab(s) orally once a day for 30 days 03/22/2023 Active Pepcid 40 MG 1 tab(s) orally 2 times a day for 30 days 03/22/2023 Active Encounters Encounter Location Date Provider Diagnosis [address] [place] [address] 09/02/2023 Provider [facility] Dermatographic urticaria L50.3 ; Shortness of breath R06.02 and Hypertrophy of nasal turbinates J34.3 Assessments Encounter Date Diagnosis (ICD Code) Assessment Notes Treatment Notes Treatment Clinical Notes Section Notes 09/02/2023 Dermatographic urticaria (ICD-10 - L50.3) 09/02/2023 Shortness of breath (ICD-10 - R06.02) 09/02/2023 Hypertrophy of nasal turbinates (ICD-10 - J34.3) Plan Of Treatment Medication Medication Name Sig Start Date Stop Date Notes Cetirizine HCl 10 MG 1 tab(s) orally BID for 30 days 03/22/2023 ALBUTEROL (EQV-PROAIR HFA) 90 MCG/INH 2 PUFF(S) INHALED EVERY 6 HOURS prn *Please review f or potential replacement for e-prescription and drug interaction check* Fluticasone Propionate 50 MCG/ACT 2 spray(s) in each nostril BID for 30 day(s) Montelukast Sodium 10 MG 1 tab(s) orally once a day for 30 days 03/22/2023 Pepcid 40 MG 1 tab(s) orally 2 times a day for 30 days 03/22/2023 Progress Notes * Angel VINSONOB: [birth year] (48 yo F)Acc No.[id number]:09/02/2023 Patient: Blanca HERBERT Provider: Brandon Hernandez :1975 A ge:48 Y S ex:Female Date:09/02/2023 [facility] Pcp:Hemal Morales Subjective: * Chief Complaints: * 1 . Multum To Medispan Conversion Encounter. * Medical History: * Medications: T aking Trintellix 10 MG Tablet 1 tab(s) orally once a day , Taking Claritin 10 MG Tablet 2 tab(s) orally once a day , Taking ALPRAZolam 0.5 MG Tablet 1 tab(s) orally 3 times a day , Notes to Pharmacist: prn, Taking Rizatriptan Benzoate 10 MG Tablet 1 tab(s) orally once a day , Notes to Pharmacist: prn migraines, Taking amLODIPine Besylate 5 MG Tablet 1 tab(s) orally once a day , Taking Pepcid 20 MG Tablet 1 tab(s) orally 2 times a day * Allergies: N KA. Objective: * Vitals: Assessment: * Assessment: 1. D ermatographic urticaria - L50.3 (Primary) 2 . S hortness of breath - R06.02 3 . H ypertrophy of nasal turbinates - J34.3 Plan: * Treatment: 2. S hortness of breath Continue ALBUTEROL (EQV-PROAIR HFA) AEROSOL, 90 MCG/INH, 2 PUFF(S), INHALED, EVERY 6 HOURS, Notes to Pharmacist: prn *Please review for potential replacement for e-prescription and drug interaction check*. 3. H ypertrophy of nasal turbinates Start Fluticasone Propionate Suspension, 50 MCG/ACT, 2 spray(s), in each nostril, BID, 30 day(s), 1, Refills 0. * Billing Information: * Visit Code: * Procedure Codes: * Electronic signature of Adela SOTO-Migration on 06/18/2024 at 12:22 PM CDT Sign off status: Pending * Provider: Brandon peñaloza Migration Date: 0 09/02/2023 Generated for Roby holden/Bea/Lucille on: 0 06/18/2024 12:22 PM CDT
--- OUTSIDE RECORDS SUMMARY | 2024-06-18 12:23 | XMS_ITS | Encounter Summary ---
Author Organization [facility] Facility Care Team Providers Care Jailer Chief Name Role Phone Danilo Land MD Primary Care Provider [phone] Hemal Morales Primary Care Provider [phone] Encounter Details Date Type Department Care Team (Latest Contact Info) Description 07/18/2017 Orders Only [facility] CLINCONV ProviderTunde MD [address] [place] [id number] Social History Tobacco Use Types Packs/Day Years Used Date Smoking Tobacco: Never Assessed Comments Unknown Sex and Gender Information Value Date Recorded Sex Assigned at Not on file Legal Sex Female 7:06 PM FINANCIAL RETIREMENT PLAN SPECIALIST Gender Identity Female 03/18/2020 9:26 AM FINANCIAL RETIREMENT PLAN SPECIALIST Sexual Orientation Straight 03/18/2020 9: 26 AM FINANCIAL RETIREMENT PLAN SPECIALIST documented as of this encounter Plan of Treatment Not on file documented as of this encounter Procedures Procedure Name Priority Date/Time Associated Diagnosis Comments SCAN - LABS 07/18/2017 12:00 AM CDT documented in this encounter Results * SCAN - LABS (07/18/2017 12:00 AM CDT) Narrative 07/18/2017 12:00 AM CDT Ordered by an unspecified provider. Historical Provider Final Res ult documented in this encounter Visit Diagnoses Not on filedocumented in this encounter Care Teams Jailer Chief Relationship Specialty Start Date End Date Danilo Land MD PCP - General Family Medicine 06/08/18 12/14/21 Hemal Morales PA PCP - General Family Medicine 12/15/21 documented as of this encounter
--- OUTSIDE RECORDS SUMMARY | 2024-06-18 12:23 | XMS_ITS | Patient Health Record ---
Author Organization [facility] Address [address] [place] [address] Care Team Providers Care Computer Graphics Illustrator Name Role Phone Hemal Morales Primary Care Provider UnavailKylah Hodge Unavailable [phone] [facility], Provider Unavailable Unavailab le Allergies Allergen (clinical drug ingredient) Drug/Non Drug Allergy documented on EMR Reaction Allergy Type Onset Date Status NKA (uncoded) Unknown Allergy Active Reason For Referral No Information Medications Medication SIG (Take, Route, Frequency, Duration) Notes Start Date End Date Status ALBUTEROL (EQV-PROAIR HFA) 90 MCG/INH 2 PUFF(S) INHALED EVERY 6 HOURS prn *Please review for potential replacement for e-prescription and drug interaction check* Active Trintellix 10 MG 1 tab(s) orally once a day Active ALPRAZolam 0.5 MG 1 tab(s) orally 3 times a day prn Active Fluticasone Propionate 50 MCG/ACT 2 spray(s) in each nostril BID for 30 day(s) Active Claritin 10 MG 2 tab(s) orally once a day Active TRINTELLIX 10 mg 1 tab(s) orally once a day Active amLODIPine Besylate 5 MG 1 tab(s) orally once a day for 30 day(s) Active CETIRIZINE 10 mg 1 tab(s) orally BID for 30 days 03/22/2023 Active CLARITIN 24 HOUR ALLERGY 10 mg 2 tab(s) orally once a day Active Rizatriptan Benzoate 10 MG 1 tab(s) orally once a day prn migraines Active PEPCID 40 mg 1 tab(s) orally 2 times a day for 30 days 03/22/2023 Active ALPRAZOLAM 0.5 mg 1 tab(s) orally 3 times a day prn Active MONTELUKAST 10 mg 1 tab(s) orally once a day for 30 days 03/22/2023 Active RIZATRIPTAN 10 mg 1 tab(s) orally once a day prn migraines Active Pepcid 20 MG 1 tab(s) orally 2 times a day for 30 days Active AMLODIPINE 5 mg 1 tab(s) orally once a day for 30 day(s) Active PEPCID 20 mg 1 tab(s) orally 2 times a day for 30 days Active Cetirizine HCl 10 MG 1 tab(s) orally BID for 30 days 03/22/2023 Active Montelukast Sodium 10 MG 1 tab(s) orally once a day for 30 days 03/22/2023 Active Pepcid 40 MG 1 tab(s) orally 2 times a day for 30 days 03/22/2023 Active FLUTICASONE NASAL 50 mcg/inh 2 spray(s) in each nostril BID for 30 day(s) Active Immunizations Vaccine Route Administration Date Status Comme nts H1N1 Influenza Unknown 05/18/2022 Administered Portal I nformation Influenza Unknown 12/18/2022 Administered Portal Infor ReaLync NOC Tdap Unknown 08/26/2004 Administered Portal Infor ReaLync Social History Tobacco Use: Social History Observation Description Date Details (start date - stop date) Former Smoker NA - NA Smoking Smart Form: Question Answer Notes Are you a: former smoker How long it has been since you last smoked? 5-10 years Problems Problem Type SNOMED Code ICD Code Onset Dates Problem Status W/U Status Risk Notes Problem Chronic migraine without aura, non-refractory (disorder) (137540667678244) Migraine without aura, not intractable, without status migrainosus (G43.009) Active confirmed Problem Migraine with aura (0213938) Migraine with aura, not intractable, without status migrainosus (G43.109) Active confirmed Problem Chronic migraine without aura, non-intractable (830125789037711) Chronic migraine without aura, not intractable, without status migrainosus (G43.709) Active confirmed Problem Chronic rhinitis (48028222) Chronic rhinitis (J31.0) Active confirmed Problem Hypertrophy of nasal turbinates (40287281) Hypertrophy of nasal turbinates (J34.3) Active confirmed Problem Dermatographic urticaria (8261279) Dermatographic urticaria (L50.3) Active confirmed Problem Essential hypertension (34886925) Essential (primary) hypertension (I10) Active confirmed Problem Shortness of breath (955924064) Shortness of breath (R06.02) Active confirmed Problem Headache (87357757) Headache, unspecified (R51.9) Active confirmed Encounters Encounter Location Date Provider Diagnosis [address] [address] 09/02/2023 Provider [facility] Dermatographic urticaria L50.3 ; Shortness of breath R06.02 and Hypertrophy of nasal turbinates J34.3 Assessments Encounter Date Diagnosis (ICD Code) Assessment Notes Treatment Notes Treatment Clinical Notes Section Notes 09/02/2023 Dermatographic urticaria (ICD-10 - L50.3) 09/02/2023 Shortness of breath (ICD-10 - R06.02) 09/02/2023 Hypertrophy of nasal turbinates (ICD-10 - J34.3) Plan Of Treatment Pending Test Test Name Order Date RESPIRATORY ALLERGY PROFILE REGION VIII: [place] 08/31/2022 RESPIRATORY ALLERGY PROFILE REG[place]: [place] 03/22/2023 CHRONIC URTICARIA 03/22/2023 ANTI-IGE 03/22/2023 TRYPTASE 03/22/2023 CBC (INCLUDES DIFF/PLT) 08/31/2022 CU PANEL 03/22/2023 Insurance Providers Payer Name Payer Address Payer Phone Subscriber Number Group Number Insured Name Patient Relationship to Insured Coverage Start Date Coverage End Date R [address] [address] [place], [place] [id number] [phone] [id number] Blanca Vinson Self - patient is the insured [employer] [address] [address] [place], [place] [id number] [phone] [id number] Santana Vinson Spouse - patient is the spouse of the insured Medical (General) History Medical History History ICD Code hypertension migraine Anxiety Surgical History Surgery Date(Month/Year) Tubal ligation 04/14/2010 Kidney stone removed form ureter 006 Lithotripsy x 2 03/20/2005 Hospitalization History Reason Date(Month/Year) kidney stones 2018 None
--- OUTSIDE RECORDS SUMMARY | 2024-06-18 12:23 | XMS_ITS ---
Author Organization [facility] Address [address] [place] [address] Care Team Providers Care Toddler Nanny Name Role Phone Andrew Hemal Primary Care Provider Kylah Chadwick Unavailable [phone] Dr. Conor Truong Unavailable [phone] REASON FOR VISIT Headache Problems Problem Type SNOMED Code ICD Code Onset Dates Problem Status W/U Status Risk Notes Problem Chronic migraine without aura, non-intractab le (699886814440 100) Chronic migraine without aura, not intractable, without status migrainosus (G43.709) Active confirmed Problem Migraine with aura (8072568) Migraine with aura, not intractable, without status migrainosus (G43.109) Active confirmed Problem Chronic migraine without aura, non-refractor y (disorder) (289775781616 100) Migraine without aura, not intractable, without status migrainosus (G43.009) Active confirmed Encounters Encounter Location Date Provider Diagnosis [facility] [address] [place] [address] 04/10/2023 Conor Truong Chronic migraine w ithout aura, not intractable, without status migrainosus G43.709 ; Migraine with aura, not intractable, without status migrainosus G43.109 ; Migraine without aura, not intractable, without status migrainosus G43.009 and Drug-induced headache, not elsewhere classified, not intractable G44.40 Assessments Encounter Date Diagnosis (ICD Code) Assessment Notes Treatment Notes Treatment Clinical Notes Section Notes 04/10/2023 Chronic migraine without aura, not intractable, without status migrainosus (ICD-10 - G43.709) 04/10/2023 Migraine with aura, not intractable, without status migrainosus (ICD-10 - G43.109) 04/10/2023 Migraine without aura, not intractable, without status migrainosus (ICD-10 - G43.009) 04/10/2023 Drug-induced headache, not elsewhere classified, not intractable (ICD-10 - G44.40) Plan Of Treatment Next Appt Details Follow Up: 4 Weeks, Reason: Evaluation and Management Progress Notes * Angel VINSONOB: [birth year] (48 yo F)Acc No.[id number]:04/10/2023 Progress Notes Patient: Blanca HERBERT Provider: Debbi Truong MD :1975 A ge:47 Y S ex:Female Date:04/10/2023 Address:[facility] Pcp:Hemal Morales Subjective: * Chief Complaints: * 1 . Headache. * HPI: * Introduction: I had the pleasure of seeing Debbi Vinson, who presented for evaluation of headaches. H eadache History: - Headache Onset:-Headache Description: Prodrome: . Aura: . H eadache phase: . Postdrome: . - Headache Triggers: - Headache Frequency: The patient is currently experiencing Headache days/month and Migraine days/month. A ssociated Factors:-Stress/Mood: Patient denies high levels of stress, anxiety or depression symptoms-Sleep:? Patient denies sleep difficulty, snoring, or restless leg symptoms-Sinus/Allergy: Patient denies allergies or sinus pain-Cervical spine: Patient denies neck pain or myofascial pain - TMJ pain or jaw clenching: Patient denies TMJ pain or bruxism. - Hormones: - Medication Overuse: Present/Not present - Caffeine Overuse: Present/Not present - Fluid intake: C urrent/Prior Migraine Treatment:-Current abortive therapy:-Previous failed abortive therapy:-Current preventive therapy:-Previous failed preventive therapy: - Other modalities: Chiropractic, Physical Therapy, Acupuncture, Biofeedback, Migraine devices P revious Imaging: H eadache Scales:MIDAS score: HIT-6 score: . * Mental Health: Depression Screening Scale P HQ-9 score: M ore than 5 minutes in spent in discussion regarding depression screening. Anxiety Screening Scale G AD-7 score:. * ROS: C ONSTITUTIONAL: Positive for P atient denies fevers, chills, sweats, unintended weight loss, loss of appetite, or chronic fatigue. E NT: Positive P atient denies ear fullness or pain or sinus pain. R ESPIRATORY: Positive for P atient denies shortness of breath or wheezing. O PHTHALMOLOGY: Positive for R eviewed and except as mentioned above in the HPI is negative. E NDOCRINOLOGY: Positive for P atient denies heat intolerance, cold intolerance, polyuria, elevated blood sugar, chronic fatigue. C ARDIOLOGY: Positive for P atient denies dizziness, palpitations, or chest pain. G ASTROENTEROLOGY: Positive for P atient denies diarrhea, melena, bloody stools, or abdominal pain. U ROLOGY: Positive for P atient denies urinary incontinence or urinary dysfunction. D ERMATOLOGY: Positive for P atient denies rash or hives. ? N EUROLOGY: Positive for R eviewed and except as mentioned above in the HPI is negative. H EMATOLOGY/LYMPH: Positive for P atient denies history of excessive bruising or bleeding diasthesis. M USCULOSKELETAL: Positive for P atient denies extremity joint pain or swelling. P SYCHOLOGY: Positive for R eviewed and except as discussed above in the HPI is otherwise negative. * Medical History: Objective: * Vitals: * Examination: G eneral examination: General appearance: P leasant, well-developed, no distress.? HEENT: P upils equal, round and reactive to light. No conjunctival injection. No tenderness to palpation over the maxillary sinuses. No turbinate hypertrophy. Tympanic membranes appear normal. No oral lesions. No tenderness over the occipital notch bilaterally. Oral cavity: N ormal, no lesions. Neck, thyroid : S upple, non-tender, no anterior cervical lymphadenopathy. Breasts : N ot performed. Heart: R RR, S1-S2, no murmurs, no rubs, no gallops. Lungs: C lear to auscultation and percussion in all lung cmapo. Abdomen: S oft, NT/ND, normal active bowel sounds. Neurologic exam: A lert and oriented x 4. Fluent speech. Intact recall, fund of knowledge. Appropriate affect. PERRL. EOMI without nystagmus. No visual field cut. Facial sensation intact to light touch and pinprick in bilateral V1/V2/V3. Facial movements normal and symmetric. Hearing intact to finger rub bilaterally. Palate symmetrically upgoing. Tongue midline. Motor 5/5 strength in all extremities. Reflexes 2+/2 and symmetric in all extremities. Bilateral flexor plantar responses. Sensory exam intact to light touch, pinprick, vibration, and proprioception in all extremities. Cerebellar testing no ataxia or dysmetria. Gait normal, negative Romberg, intact tandem. Skin: N ormal, no rash, urticaria, angioedema. Peripheral pulses: n ormal (2+) bilaterally. Back: N o cervical or periscapular trigger points. Normal cervical and lumbar ROM. Extremities: N ormal ROM, no clubbing, no cyanosis, no edema. Genitalia: N ot performed. Assessment: * Assessment: 1. C hronic migraine without aura, not intractable, without status migrainosus - G43.709 (Primary) 2 . M igraine with aura, not intractable, without status migrainosus - G43.109 3 . M igraine without aura, not intractable, without status migrainosus - G43.009 4 . D rug-induced headache, not elsewhere classified, not intractable - G44.40 Plan: * Treatment: * Procedure Codes: G 0444 ANNUAL DEPRESSION SCREENING 5-15 MIN, G8427 DOC MEDS VERIFIED W/[place], [address] PT-FOCUSED HLTH RISK ASSMT * Follow Up: 4 Weeks (Reason: Evaluation and Management) * Billing Information: * Visit Code: 08389 Office Visit, New Pt., Level 4. Modifiers: 25 * Procedure Codes: G0444 ANNUAL DEPRESSION SCREENING 5-15 MIN. G8427 DOC MEDS VERIFIED W/[place]. [address] PT-FOCUSED HLTH RISK ASSMT. * Electronic signature of Dr. Conor Truong MD on 06/18/2024 at 12:22 PM CDT Sign off status: Pending * Provider: Debbi Truong MD Date: 04/10/2023 Generated for Roby holden/Bea/Lucille on: 0 06/18/2024 12:22 PM CDT History and Physical Notes * HPI (History of Present Illness) Category Sub-Category Detail Notes Category Not es *Introduction I had the pleasure o f seeing Blanca Vinson, who presented for evaluation of headaches. Headache History: -Headache Onset:-Headache Description: Prodrome: . Aura: . Headache phase: . Postdrome: . -Headache Triggers: -Headache Frequency: The patient is currently experiencing Headache days/month and Migraine days/month. Associated Factors:-Stress/Mood: Patient denies high levels of stress, anxiety or depression symptoms-Sleep: Patient denies sleep difficulty, snoring, or restless leg symptoms-Sinus/Allergy: Patient denies allergies or sinus pain-Cervical spine: Patient denies neck pain or myofascial pain -TMJ pain or jaw clenching: Patient denies TMJ pain or bruxism. -Hormones: -Medication Overuse: Present/Not present -Caffeine Overuse: Present/Not present -Fluid intake: Current/Prior Migraine Treatment:-Current abortive therapy:-Previous failed abortive therapy:-Current preventive therapy:-Previous failed preventive therapy: -Other modalities: Chiropractic, Physical Therapy, Acupuncture, Biofeedback, Migraine devices Previous Imaging: Headache Scales:MIDAS score: HIT-6 score: *Mental Health Depression Screening Scale PHQ-9 score: More than 5 minutes in spent in discussion regarding depression screening Anxiety Screening Scale JOSLYN-7 score: Examination Category Sub-Category Detail Notes Category Not es General examination HEENT: Pupils equal , round and reactive to light. No conjunctival injection. No tenderness to palpation over the maxillary sinuses. No turbinate hypertrophy. Tympanic membranes appear normal. No oral lesions. No tenderness over the occipital notch bilaterally Neck, thyroid : Supple, non-tender, no anterior cervical lymphadenopathy Heart: RRR, S1-S2, no murmu rs, no rubs, no gallops Lungs: Clear to auscultatio n and percussion in all lung campo Abdomen: Soft, NT/ND, normal active bowel sounds Extremities: Normal ROM, no clubb ing, no cyanosis, no edema General appearance: Pleasant, well-devel oped, no distress Skin: Normal, no rash, urt icaria, angioedema Neurologic exam: Alert and oriented x 4. Fluent speech. Intact recall, fund of knowledge. Appropriate affect. PERRL. EOMI without nystagmus. No visual field cut. Facial sensation intact to light touch and pinprick in bilateral V1/V2/V3. Facial movements normal and symmetric. Hearing intact to finger rub bilaterally. Palate symmetrically upgoing. Tongue midline. Motor 5/5 strength in all extremities. Reflexes 2+/2 and symmetric in all extremities. Bilateral flexor plantar responses. Sensory exam intact to light touch, pinprick, vibration, and proprioception in all extremities. Cerebellar testing no ataxia or dysmetria. Gait normal, negative Romberg, intact tandem Oral cavity: Normal, no lesions Breasts : Not performed Peripheral pulses: normal (2+) bilatera lly Back: No cervical or peris capular trigger points. Normal cervical and lumbar ROM Genitalia: Not performed
--- OUTSIDE RECORDS SUMMARY | 2024-06-18 12:23 | XMS_ITS | Encounter Summary ---
Author Organization [facility] Facility Care Team Providers Care Bass Guitar Teacher Name Role Phone Danilo Land MD Primary Care Provider [phone] Hemal Morales Primary Care Provider Encounter Details Date Type Department Care Team (Latest Contact Info) Description 07/10/2017 Orders Only [facility]IN[facility] ProviderTunde MD [address] [place] [address] Social History Tobacco Use Types Packs/Day Years Used Date Smoking Tobacco: Never Assessed Comments Unknown Sex and Gender Information Value Date Recorded Sex Assigned at Not on file Legal Sex Female 7:06 PM MILITARY POLICE OFFICER Gender Identity Female 03/18/2020 9:26 AM MILITARY POLICE OFFICER Sexual Orientation Straight 03/18/2020 9: 26 AM MILITARY POLICE OFFICER documented as of this encounter Plan of Treatment Not on file documented as of this encounter Procedures Procedure Name Priority Date/Time Associated Diagnosis Comments SCAN - LABS 07/19/2017 12:00 AM CDT documented in this encounter Results * SCAN - LABS (07/19/2017 12:00 AM CDT) Narrative 07/19/2017 12:00 AM CDT Ordered by an unspecified provider. Historical Provider Final Res ult documented in this encounter Visit Diagnoses Not on filedocumented in this encounter Care Teams Bass Guitar Teacher Relationship Specialty Start Date End Date Danilo Land MD PCP - General Family Medicine 06/08/18 12/14/21 Hemal Morales PA PCP - General Family Medicine 12/15/21 documented as of this encounter
--- OUTSIDE RECORDS SUMMARY | 2024-06-18 12:23 | XMS_ITS | Encounter Summary ---
Author Organization [facility] Facility Care Team Providers Care Manager Assurance Name Role Phone Danilo Land MD Primary Care Provider [phone] Hemal Morales Primary Care Provider [phone] Encounter Details Date Type Department Care Team (Latest Contact Info) Description 08/29/2016 Orders Only [facility] CLINCON[facility] ProviderTunde MD [address] [place], [place] [id number] Social History Tobacco Use Types Packs/Day Years Used Date Smoking Tobacco: Never Assessed Comments Unknown Sex and Gender Information Value Date Recorded Sex Assigned at Not on file Legal Sex Female 7:06 PM NUCLEAR MEDICINE TECHNOLOGIST Gender Identity Female 03/18/2020 9:26 AM NUCLEAR MEDICINE TECHNOLOGIST Sexual Orientation Straight 03/18/2020 9: 26 AM NUCLEAR MEDICINE TECHNOLOGIST documented as of this encounter Plan of Treatment Not on file documented as of this encounter Procedures Procedure Name Priority Date/Time Associated Diagnosis Comments PROCEDURE - RESULT 08/30/2016 12 :00 AM CDT SCAN - LABS 08/30/2016 12:00 AM CDT documented in this encounter Results * PROCEDURE - RESULT (08/30/2016 12:00 AM CDT) Narrative 08/30/2016 12:00 AM CDT Ordered by an unspecified provider. Historical Provider Final Res ult * SCAN - LABS (08/30/2016 12:00 AM CDT) Narrative 08/30/2016 12:00 AM CDT Ordered by an unspecified provider. us Historical Provider MD Final Res ult documented in this encounter Visit Diagnoses Not on filedocumented in this encounter Care Teams Manager Assurance Relationship Specialty Start Date End Date Danilo Land MD PCP - General Family Medicine 06/08/18 12/14/21 Hemal Morales PA PCP - General Family Medicine 12/15/21 documented as of this encounter
--- OUTSIDE RECORDS SUMMARY | 2024-06-18 12:23 | XMS_ITS | Encounter Summary ---
Author Organization [facility] Facility Care Team Providers Care Press Tender Name Role Phone Danilo Land MD Primary Care Provider [phone] Hemal Morales Primary Care Provider [phone] Encounter Details Date Type Department Care Team (Latest Contact Info) Description 08/16/2016 Orders Only [facility] CLINCONV ProviderTunde MD [address] [place] [address] Social History Tobacco Use Types Packs/Day Years Used Date Smoking Tobacco: Never Assessed Comments Unknown Sex and Gender Information Value Date Recorded Sex Assigned at Not on file Legal Sex Female 7:06 PM BULK INTAKE WORKER Gender Identity Female 03/18/2020 9:26 AM BULK INTAKE WORKER Sexual Orientation Straight 03/18/2020 9: 26 AM BULK INTAKE WORKER documented as of this encounter Plan of Treatment Not on file documented as of this encounter Procedures Procedure Name Priority Date/Time Associated Diagnosis Comments SCAN - LABS 08/16/2016 12:00 AM CDT documented in this encounter Results * SCAN - LABS (08/16/2016 12:00 AM CDT) Narrative 08/16/2016 12:00 AM CDT Ordered by an unspecified provider. Historical Provider Final Res ult documented in this encounter Visit Diagnoses Not on filedocumented in this encounter Care Teams Press Tender Relationship Specialty Start Date End Date Danilo Land MD PCP - General Family Medicine 06/08/18 12/14/21 Hemal Morales PA PCP - General Family Medicine 12/15/21 documented as of this encounter
== END 2024-06-18 11:03 | disposition home or self-care (01) ==
LOC: ANHLAB 11:05
PROVIDERS: PCP Physician Assistant Medical; Visit Provider Physician Assistant Medical
DX: Z00.00 Encounter for general adult medical examination without abnormal findings (principal); I10 Essential (primary) hypertension
CPT/HCPCS: 36415; 80053; 80061; 85025

== ENCOUNTER 2024-10-31 15:28 | Outpatient (CLI) | payer OTHER, SELFPAY ==
--- OUTSIDE RECORDS SUMMARY | 2024-10-31 15:34 | XMS_ITS | Encounter Summary ---
Author Organization [facility] Facility Care Team Providers Care Telemarketing Sales Representative Name Role Phone Dainlo Land MD Primary Care Provider Hemal Morales Primary Care Provider [phone] Encounter Details Date Type Department Care Team (Latest Contact Info) Description 08/16/2016 Orders Only [facility] CLINCONV ProviderTunde MD [address] [place] [address] Social History Tobacco Use Types Packs/Day Years Used Date Smoking Tobacco: Never Assessed Comments Unknown Sex and Gender Information Value Date Recorded Sex Assigned at Not on file Legal Sex Female 7:06 PM TRANSPORTER RADIOLOGY Gender Identity Female 03/18/2020 9:26 AM TRANSPORTER RADIOLOGY Sexual Orientation Straight 03/18/2020 9: 26 AM TRANSPORTER RADIOLOGY documented as of this encounter Plan of [...] on filedocumented in this encounter Care Teams Telemarketing Sales Representative Relationship Specialty Start Date End Date Danilo Land MD PCP - General Family Medicine 06/08/18 12/14/21 Hemal Morales PA PCP - General Family Medicine 12/15/21 documented as of this encounter
--- OUTSIDE RECORDS SUMMARY | 2024-10-31 15:34 | XMS_ITS | Encounter Summary ---
Author Organization [facility] Facility Care Team Providers Care Seating Captain Name Role Phone Danilo Land MD Primary Care Provider [phone] Hemal Morales Primary Care Provider [phone] Encounter Details Date Type Department Care Team (Latest Contact Info) Description 12/02/2015 Orders Only [facility] CLINCONV Provider, MD Tunde [address] [place] [address] Social History Tobacco Use Types Packs/Day Years Used Date Smoking Tobacco: Never Assessed Comments Unknown Sex and Gender Information Value Date Recorded Sex Assigned at Not on file Legal Sex Female 7:06 PM SPECIAL INVESTIGATION UNIT INVESTIGATOR Gender Identity Female 03/18/2020 9:26 AM SPECIAL INVESTIGATION UNIT INVESTIGATOR Sexual Orientation Straight 03/18/2020 9: 26 AM SPECIAL INVESTIGATION UNIT INVESTIGATOR documented as of this encounter Plan of [...] on filedocumented in this encounter Care Teams Seating Captain Relationship Specialty Start Date End Date Danilo Land MD PCP - General Family Medicine 06/08/18 12/14/21 Hemal Morales PA PCP - General Family Medicine 12/15/21 documented as of this encounter
--- OUTSIDE RECORDS SUMMARY | 2024-10-31 15:34 | XMS_ITS | Encounter Summary ---
Author Organization [facility] Facility Care Team Providers Care Steam Tank Operator Name Role Phone Danilo Land MD Primary Care Provider [phone] Hemal Morales Primary Care Provider [phone] Encounter Details Date Type Department Care Team (Latest Contact Info) Description 08/29/2016 Orders Only [facility]INCON[facility] Provider, MD Tun[place] [address] [place] [id number] Social History Tobacco Use Types Packs/Day Years Used Date Smoking Tobacco: Never Assessed Comments Unknown Sex and Gender Information Value Date Recorded Sex Assigned at Not on file Legal Sex Female 7:06 PM MORTICIAN HELPER Gender Identity Female 03/18/2020 9:26 AM MORTICIAN HELPER Sexual Orientation Straight 03/18/2020 9: 26 AM MORTICIAN HELPER documented as of this encounter Plan of [...] on filedocumented in this encounter Care Teams Steam Tank Operator Relationship Specialty Start Date End Date Danilo Land MD PCP - General Family Medicine 06/08/18 12/14/21 Hemal Morales PA PCP - General Family Medicine 12/15/21 documented as of this encounter
--- OUTSIDE RECORDS SUMMARY | 2024-10-31 15:34 | XMS_ITS | Clinical Summary ---
Author Organization [facility] [address] [facility] Address [address] [place] [address] Care Team Providers Care Sewing Trimmer Name Role Phone Hemal Morales Primary Care Provider [phone] Allergies No known active allergies Medications rizatriptan BATTERY REPAIRER (MAXALT-BATTERY REPAIRER) 10 mg disintegrating tabletIndications :Migraine without aura and without status migrainosus, not intractable May repeat in 2 hours if unresolved. Do not exceed 30 mg in 24 hours. 10 tablet 3 01/13/20 22 Active albuterol HFA (PROVENTIL HFA,VENTOLIN HFA,PROAIR HFA) 90 mcg/actuation inhaler INHALE 2 PUFFS BY MOUTH EVERY 6 HOURS NEEDED FOR WHEEZING OR SHORTNESS OF BREATH 8.5 g 1 03/22/19 24 Active ondansetron ODT (ZOFRAN-ODT) 4 mg disintegrating tabletIndications :Nausea and vomiting, unspecified vomiting type Take 1 tablet (4 mg total) by mouth every 6 (six) hours as needed for nausea or vomiting 30 tablet 12/11/19 24 Active cetirizine (ZyrTEC) 10 mg chewable tablet Take 1 tablet (10 mg total) by mouth daily Active sertraline (ZOLOFT) 50 mg tabletIndications :Moderate episode of recurrent major depressive disorder (HCC) TAKE 1 TABLET(50 MG) BY MOUTH DAILY 90 tablet 09/19/19 25 Active amLODIPine (NORVASC) 5 mg tabletIndications :Essential (primary) hypertension TAKE 1 TABLET(5 MG) BY MOUTH DAILY 90 tablet 09/19/19 25 Active ALPRAZolam (XANAX) 0.5 mg tabletIndications :JOSLYN (generalized anxiety disorder) TAKE 1 TABLET(0.5 MG) BY MOUTH THREE TIMES DAILY NEEDED FOR ANXIETY 60 tablet 10/29/19 25 Active ALPRAZolam (XANAX) 0.5 mg tabletIndications :JOSLYN (generalized anxiety disorder) TAKE 1 TABLET(0.5 MG) BY MOUTH THREE TIMES DAILY NEEDED FOR ANXIETY 60 tablet 09/19/19 25 025 Discontinued Active Problems Problem Noted Date Diagnosed [...] topirimate Assessment & Plan (05/17/2023 11:08 AM HURL SHAKER): Chronic not at goal Start contrave Moderate episode of recurrent major depressive d isorder 05/15/2018 Assessment & Plan (03/06/2024 3:18 PM HURL SHAKER): Chronic not well controlled Increase zoloft 50mg Assessment & Plan (08/23/2023 9:27 AM CDT): Chronic stable and improved Continue zoloft Assessment & Plan (05/17/2023 11:13 AM HURL SHAKER): Chronic conditions stable Continue sertraline. Assessment & Plan (02/15/2023 10:39 AM HURL SHAKER): Chronic and not well controlled Start trintellix D/c zoloft Assessment & Plan (09/01/2021 4:09 PM CDT): Chronic condition stable well controlled continue Wellbutrin Assessment & Plan (10/29/2018 2:06 PM CDT): Patient failed Prozac due to side effects. We will start trentellix 10 mg 1 tab p.o. Q.d. Mild intermittent asthma without complication Assessment & Plan (02/18/2019 11:38 AM HURL SHAKER): symbicort 160/4.5 Essential (primary) hypertension 08/04/2017 Assessment & Plan (11/29/2023 10:41 AM CDT): Chronic stable and well controlled Continue amlodipine Assessment & Plan (08/23/2023 9:26 AM CDT): Chronic stable and well controlled Continue amlodipine Assessment & Plan (05/17/2023 11:13 AM HURL SHAKER): Chronic stable and well controlled Continue amlodipine Assessment & Plan (02/15/2023 10:30 AM HURL SHAKER): Chronic stable and well controlled Continue amlodipine Assessment & Plan (11/09/2022 10:32 AM CDT): Chronic stable and well controlled Continue amlodipine Assessment & Plan (05/12/2022 12:59 PM HURL SHAKER): Chronic stable and at goal\ contiue amlodipine. Assessment & Plan (09/01/2021 4:09 PM CDT): Chronic condition stable well controlled Continue amlodipine Assessment & Plan (07/12/2021 2:01 PM CDT): Chronic condition Well controlled at goal Assessment & Plan (06/02/2021 2:34 PM CDT): Chronic condition Continue amlodipine. At goal Assessment & Plan (03/31/2021 3:08 PM HURL SHAKER): Chronic condition well-controlled at goal continue with amlodipine Assessment & Plan (10/19/2020 10:09 AM CDT): Chronic condition Assessment & Plan (07/22/2020 11:34 AM CDT): Chronic condition Stable and at goal Assessment & Plan (06/10/2020 11:12 AM CDT): Chronic condition currently well controlled continue amlodipine Assessment & Plan (03/25/2020 12:04 PM HURL SHAKER): Well controlled on current regimen, no rx [...] 05/16/2017 Assessment & Plan (05/12/2022 12:58 PM HURL SHAKER): Chronic and not well cotrolled Start nurtec [...] dose. Assessment & Plan (03/25/2020 12:04 PM HURL SHAKER): Refill emgality and restart Give toradol 60mg im Current migraine red today. Assessment & Plan (10/16/2019 10:54 AM CDT): Start emgality Assessment & Plan (02/18/2019 11:37 AM HURL SHAKER): Start topamax taper Assessment & Plan (10/29/2018 [...] 05/16/2017 Assessment & Plan (02/15/2023 10:37 AM HURL SHAKER): Chronic stable and well controlled Continue xanax \ D/c zoloft due to sexual dysfunction Start trintellix Assessment & Plan (11/09/2022 10:32 AM CDT): Chronic stable and well controlled Continue xanax Start zoloft 25mg \ Likely secondary to beginning perimenopausal symptoms Assessment & Plan (05/12/2022 1:00 PM HURL SHAKER): Chronic stable and well controlled Continue xanax Assessment & Plan (01/12/2022 11:23 AM CDT): Chronic and well controlled Continue with xanax prn Refill today Assessment & Plan (07/12/2021 2:00 PM CDT): Chronic conditoin Uncontrolled Increase wellbutrin xl 300mg Assessment & Plan (06/02/2021 2:34 PM CDT): Chronic condition persistent but well controlled with Xanax Continue current regimen Assessment & Plan (03/31/2021 3:08 PM HURL SHAKER): Chronic condition stable with intermittent use of alprazolam Refill alprazolam Assessment & Plan (10/19/2020 10:09 AM CDT): Chronic condition Stable and well controlled Refill xanax Assessment & Plan (06/10/2020 11:13 AM CDT): Chronic condition that is currently under good control with Xanax taking 1 to 3 times a day. Assessment & Plan (03/25/2020 12:05 PM HURL SHAKER): Well controlled on current regimen, no rx changes needed. Continue lifestyle modifications Refill xanax Assessment & Plan (08/15/2019 2:09 PM CDT): Well controlled on current regimen, no rx changes needed. Continue lifestyle modifications Assessment & Plan (02/18/2019 11:37 AM HURL SHAKER): Refill xanax Assessment & Plan (10/29/2018 2:06 [...] yamile Assessment & Plan (05/12/2022 12:59 PM HURL SHAKER): Chronic and not at goal; Start adipex [...] topiramate Assessment & Plan (03/31/2021 3:04 PM HURL SHAKER): Chronic condition Uncontrolled 16lb weight gain Start [...] topamax Assessment & Plan (02/18/2019 11:37 AM HURL SHAKER): Start phenteramine Start topamax taper dose Encounters Date Type Department Care Team Description 08/07/2024 9:45 AM CDT Office Visit [facility] at [address] [address] Hemal Morales PA Encounter for screening mammogram for malignant neoplasm of breast (Primary Dx); Essential (primary) hypertension; Migraine without aura and without status migrainosus, not intractable; Moderate episode of recurrent major depressive disorder (HCC); JOSLYN (generalized anxiety disorder); Microcytic anemia from Last 3 Months Immunizations Immunization Administration Dates Next Due Influenza, [...] History Relation Name Comments Hypertension Father Moses perkins Prostate cancer Father Moses perkins Cancer Maternal Grandmother Kristan Asthma Mother Deb COPD Mother Deb Cancer Paternal Grandfather Moses perkins Relation Name Status Comments Brother Alive Daughter Alive Father Moses perkins Alive Maternal Grandfather Maternal Grandmother Kristan Mother Deb Alive Paternal Grandfather Moses perkins Paternal Grandmother Alive Son Alive Social History [...] you have a drink containing alcohol? Never 08/07/2024 Q2: How many drinks containi ng alcohol do you have on a typical day when you are drinking? Patient does not drink Q3: How often do you have si x or more drinks on one occasion? Never 08/07/2024 PHQ-2 Answer Date Recorded PHQ-2 Total Score [...] on file Legal Sex Female 7:06 PM HURL SHAKER Gender Identity Female 03/18/2020 9:26 AM HURL SHAKER Sexual Orientation Straight 03/18/2020 9: 26 AM HURL SHAKER Obstetrics History Para Term AB IAB SAB Ectopic Multiple Livin g Live Births 2 Date Outcome GA Total Labor Labor/2nd/3rd Weight Sex Type Anes PTL Mayra A1 A5 Name Clin Last Filed Vital Signs Vital Sign Reading Time Taken Comments Blood Pressure 128/84 08/07/2024 10:17 AM CDT Pulse 96 08/07/2024 10:17 AM CDT Temperature 36.2 C (97.1 F) 08/07/2024 10:17 AM CDT Respiratory Rate 16 12/11/2023 1:44 PM CDT Oxygen Saturation 94% 08/07/2024 10: 17 AM CDT Inhaled Oxygen Concentration - - Weight 94.7 kg (208 lb 11.2 oz) 025 10:17 AM CDT Height 165.1 cm (5' 5) 08/07/2024 10:1 7 AM CDT Body Mass Index 34.73 08/07/2024 10:17 AM CDT Plan of Treatment Health Maintenance Due Date Last Done Comments Cervical Cancer Screening 1977 Hepatitis C Screening 1975 DTaP/Tdap/Td Vaccine (1 - Tdap) 1988 Hepatitis B Screening 08/11/1995 Pneumococcal vaccine <65 (1 of 2 - PCV) 1996 Breast Cancer Screening-Mammogram 10/20/2023 023 Covid-19 Vaccine ( - 2023-2 5 season) 2023 01/01/2021, 03/27/2020, 03/06/2020 Influenza Vaccine (#1) 2024 , 02/03/2023, 01/14/2020 Depression Screening 03/06/2025 03/06/2024, 02/15/2023, 11/17/2021, Additional history exists Regular Well Visit/Exam 18-64 03/06/2025, 02/15/2023, 11/18/2020 Colon Cancer Screening-DNA Stool 12/12/2025 12/13/19 23 Procedures Procedure Name Priority Date/Time Associated Diagnosis [...] CDT) Stool DNA - Cologuard Negative Negative [facility] (CLIA #:[id number]) Comment: NEGATIVE TEST RESULT. A negative Cologuard [...] with both Cologuard and colonoscopy. (Jose Alberto Sharif et al, N Engl J Med 2014;370(14):5056-7209) The normal value (reference range) for this assay is negative. COLOGUARD RE-SCREENING RECOMMENDATION: Periodic colorectal cancer screening is an important part of preventive healthcare for asymptomatic individuals at average risk for colorectal cancer. Following a negative Cologuard result, the [place] and U.S. Multi-Society Task Force screening guidelines recommend a Cologuard re-screening interval of 3 years. References: [place] [employer] Guideline for Colorectal Cancer Screening: https://www.cancer.org/cancer/tifdr-ddekvl-izsluk/dixgafzeb-mdfqokisw-hrlrnyp/ac s-rec ommendations.html.; Giorgio OTOOLE, [place] MARTINEZ, Kirk JohnK, Colorectal Cancer Screening: Recommendations for Physicians and Patients from the U.S. Multi-Society Task Force on Colorectal Cancer Screening , Am J Gastroenterology 2017; 112:1296-8170. TEST DESCRIPTION: Composite algorithmic analysis of stool [...] Alberto Fernandez al, N Engl J Med 2014;370(14):9516-6937.) Cologuard may produce a false negative or false positive result (no colorectal cancer or precancerous polyp present at colonoscopy follow up). A negative Cologuard test result does not guarantee the absence of CRC or advanced adenoma (pre-cancer). The current Cologuard screening interval is every 3 years. ([place] [employer] and U.S. Multi-Society Task Force). Cologuard performance data in a 10,000 patient pivotal study using colonoscopy as the reference method can be accessed at the following location: www.[employer]/results. Additional description of the Cologuard test process, warnings and precautions can be found at www.cologTripletPlusrd.com. Stool 12/12/2022 8:30 AM CDT 12/13/2022 4:19 PM CDT us Hemal [facility] BODY FLUIDS AND STOOLS SEDRICK MILAN Final Result [facility] (CLIA #:[id number]) [address] [place] [address] * Screening Mammogram Bilateral W Magen (10/19/2022 [...] age 40, based on guidelines of the [employer] (ACR Practice Parameter for the Performance of Screening and Diagnostic Mammography) and [employer]. For women [...] Most Recently Relevant to Health Maintenance Insurance [facility] [place] [facility] Care Teams Sewing Trimmer Relationship Specialty Start Date End Date Hemal Morales PA PCP - General Family Medicine 12/15/21
--- OUTSIDE RECORDS SUMMARY | 2024-10-31 15:34 | XMS_ITS | Encounter Summary ---
Author Organization [facility] Facility Care Team Providers Care Plaster Patternmaker Name Role Phone Danilo Land MD Primary Care Provider [phone] Hemal Morales Primary Care Provider [phone] Encounter Details Date Type Department Care Team (Latest Contact Info) Description 07/10/2017 Orders Only [facility] CLINCONV ProviderTunde MD [address] [place] [address] Social History Tobacco Use Types Packs/Day Years Used Date Smoking Tobacco: Never Assessed Comments Unknown Sex and Gender Information Value Date Recorded Sex Assigned at Not on file Legal Sex Female 7:06 PM BELT LOOP CUTTER Gender Identity Female 03/18/2020 9:26 AM BELT LOOP CUTTER Sexual Orientation Straight 03/18/2020 9: 26 AM BELT LOOP CUTTER documented as of this encounter Plan of [...] on filedocumented in this encounter Care Teams Plaster Patternmaker Relationship Specialty Start Date End Date Danilo Land MD PCP - General Family Medicine 06/08/18 12/14/21 Hemal Morales PA PCP - General Family Medicine 12/15/21 documented as of this encounter
--- OUTSIDE RECORDS SUMMARY | 2024-10-31 15:34 | XMS_ITS | Encounter Summary ---
Author Organization [facility] Facility Care Team Providers Care Assurance Auditor Name Role Phone Danilo Land MD Primary Care Provider Hemal Morales Primary Care Provider [phone] Encounter Details Date Type Department Care Team (Latest Contact Info) Description 07/18/2017 Orders Only [facility] CLINCONV ProviderTunde MD [address] [place] [address] Social History Tobacco Use Types Packs/Day Years Used Date Smoking Tobacco: Never Assessed Comments Unknown Sex and Gender Information Value Date Recorded Sex Assigned at Not on file Legal Sex Female 7:06 PM PATENT ENGINEER Gender Identity Female 03/18/2020 9:26 AM PATENT ENGINEER Sexual Orientation Straight 03/18/2020 9: 26 AM PATENT ENGINEER documented as of this encounter Plan of [...] on filedocumented in this encounter Care Teams Assurance Auditor Relationship Specialty Start Date End Date Danilo Land MD PCP - General Family Medicine 06/08/18 12/14/21 Hemal Morales PA PCP - General Family Medicine 12/15/21 documented as of this encounter
[2024-10-31 16:23] LABS: Iron 43 ug/dL (37-170)
[2024-10-31 16:33] LABS: Percent Iron Saturation 12 % (20-50)
[2024-10-31 16:59] LABS: Ferritin 6.43 ng/mL (6.24-137)
== END 2024-10-31 15:29 | disposition home or self-care (01) ==
LOC: ANHLAB 15:32
PROVIDERS: PCP Physician Assistant Medical; Visit Provider Physician Assistant Medical
DX: D50.9 Iron deficiency anemia, unspecified (principal)
CPT/HCPCS: 36415; 82728; 83540; 83550